=== PATIENT | male | born 1960 | race Caucasian/White ===

== ENCOUNTER 2019-02-09 08:25 | Day surgery (SDC) | payer MEDICAID ==
[~2019-02-09] VITALS: Ht 188 cm; Wt 124.7 kg
[~2019-02-09 08:25] MED LIST: SODIUM CHLORIDE 0.9% 1000ML 1,000 ML IV ONE
[2019-02-09 09:30] VITALS: BP 154/93
[2019-02-09] MEDS ORDERED: PROPOFOL 10 MG/ML 20ML VIAL IV ONE (09:59)
[2019-02-09] MEDS ORDERED: LIDOCAINE HCL-MPF 2% 5ML VIAL ONE (09:59)
[2019-02-09 10:23] VITALS: BP 107/67
[2019-02-09 10:28] VITALS: BP 113/61
[2019-02-09 10:33] VITALS: BP 126/60
[2019-02-09 10:38] VITALS: BP 120/54
[2019-02-09 10:43] VITALS: BP 128/54
--- NOTE | 2019-02-09 10:51 | NUR ---
DC PT WAITING FOR RIDE TO GO HOME.
--- NOTE | 2019-02-09 11:39 | NUR ---
DC PT DC HOME VIA WC,NO DISTRESS NOTED. ACCOMPANIED BY SON AND FAMILY FRIEND
== END 2019-02-09 11:39 | disposition home or self-care (01) ==
LOC: DAH 08:25 → ENDO 08:25
PROVIDERS: ATTEND Internal Medicine Gastroenterology
DX: K59.00 Constipation, unspecified (principal); D12.3 Benign neoplasm of transverse colon; D12.5 Benign neoplasm of sigmoid colon; K62.1 Rectal polyp; K57.30 Diverticulosis of large intestine without perforation or abscess without bleeding; K64.0 First degree hemorrhoids; Z86.010 Personal history of colon polyps; J44.9 Chronic obstructive pulmonary disease, unspecified; E66.01 Morbid (severe) obesity due to excess calories; F41.9 Anxiety disorder, unspecified; F32.9 Major depressive disorder, single episode, unspecified; M19.90 Unspecified osteoarthritis, unspecified site; I12.9 Hypertensive chronic kidney disease with stage 1 through stage 4 chronic kidney disease, or unspecified chronic kidney disease; N18.9 Chronic kidney disease, unspecified; E78.5 Hyperlipidemia, unspecified; Z98.0 Intestinal bypass and anastomosis status; Z90.49 Acquired absence of other specified parts of digestive tract
CPT/HCPCS: 45380; 88305; A4215; A4221; A4222; A4223; A4606; A4615; A4663; J2704; J3490; J7030

== ENCOUNTER → 2019-09-22 | Outpatient (CLI) | payer MEDICAID | END | disposition home or self-care (01) | LOC: RAH 08:40 | PROVIDERS: ATTEND Physical Medicine & Rehabilitation | DX: M47.816 Spondylosis without myelopathy or radiculopathy, lumbar region (principal); M48.061 Spinal stenosis, lumbar region without neurogenic claudication; M25.78 Osteophyte, vertebrae; M17.11 Unilateral primary osteoarthritis, right knee; M25.761 Osteophyte, right knee | CPT/HCPCS: 72110; 73562 ==